=== PATIENT | female | born 1980 | race Caucasian/White ===

== ENCOUNTER 2019-09-25 18:17 | Emergency (ER) | payer SELFPAY ==
[~2019-09-25] VITALS: Ht 170.2 cm; Wt 57.6 kg
--- OUTSIDE RECORDS SUMMARY | 2019-09-25 18:19 | XMS REPORT ---
Author Author [facility] Address Unknown Phone Unavailable Care Team Providers Care [employer] Former Name Role Phone Unavailable Unavailable Payers Payer Name Policy Type Policy Number Effective Date Expiration Date Problems This patient has no known problems. Allergies, Adverse Reactions, Alerts Allergy Name Allergy Type Status Severity Reaction(s) Onset Date Inactive Date Treating Clinician Comments ibuprofen DA Active U 2018-09-09 00:00:00 naproxen DA Active MO 2018-09-09 00:00:00 Medications This patient has no known medications.
[2019-09-25 18:44] VITALS: BP 110/86
[2019-09-25] MEDS ORDERED: CHLORHEXIDINE473 ML PO (18:44)
[2019-09-25] MEDS ORDERED: AUGMENTIN 875-1 EACH PO (18:44)
== END 2019-09-25 18:48 | disposition home or self-care (01) ==
LOC: ER 18:17
DX: K08.89 Other specified disorders of teeth and supporting structures (principal); K02.9 Dental caries, unspecified
CPT/HCPCS: 99282